=== PATIENT | female | born 1975 | race African-American/Black ===

== ENCOUNTER 2025-03-11 04:04 | Emergency (ER) | payer MEDICAID, SELFPAY ==
[2025-03-11 04:05] VITALS: BP 128/77; PULSE 91; RESP 18; TEMP 36.4; O2SAT 100; BMI 25.6
--- NOTE | 2025-03-11 04:19 | EDS_ITS ---
HPI History of Present Illness Chief Complaint: Other, Pain/Inj Narrative Narrative: Chief complaint and HPI: Right nipple mole pain. 50-year-old female with no significant past medical history presents for evaluation of right nipple mole pain. Patient states that she has had a mole on her right nipple since she was born. She states that years ago it became painful in which she got an antibiotic ointment and this resolved. Patient states over the last several days the mole has become painful which is why she presents for evaluation. She denies any fever, chills, nausea, vomiting. Denies any breast pain. Denies any nipple discharge or blood. Review of systems: See HPI Medications: As listed on the chart Allergies: As listed on the chart PFSH: Per chart Vital signs: As listed on the chart. Reviewed. Physical exam: Gen: A&O x3, NAD Head: Normocephalic, atraumatic Eyes: No sclera icterus, conjunctiva clear ENT: Moist mucous membranes Neck: Supple, full range of motion CV: Regular rate Resp: Nonlabored respiration Breast: Patient has a flesh-colored lesion on her right nipple it is attached by a thin stalk-the stalk is tender to palpation where there is excoriation from rubbing likely on her brawl, no erythema/warmth/purulence, nipple is not inverted, no peau d'orange, no nipple discharge, breast nontender without mass Neuro: Alert, oriented, grossly intact, sensation intact Psych: Cooperative, appropriate mood and affect [facility] Medical History (Updated 03/11/25 @ 04:10 by Jo Ann Soler) Asthma Home Medications ?Medication ?Instructions ?Recorded ?Last Taken ?Type albuterol sulfate inhalation PRN sob 03/11/25 Unknown History Allergy/AdvReac Type Severity Reaction Status Date / Time No Known Allergies Allergy Verified 03/11/25 04:09 Social History Smoking Status: Current every day smoker tobacco type: cigarettes EXAM Physical Exam Const Vital Signs: 03/11/25 04:05 03/11/25 04:11 Temperature 97.5 F L Temperature Source Oral Pulse Rate 91 Respiratory Rate 18 Respiratory Effort Normal Respiratory Pattern Normal Blood Pressure 128/77 H Blood Pressure Mean 94 Pulse Ox 100 Oxygen Delivery Method Room Air MDM MDM MDM Narrative Medical decision making narrative: 50-year-old female with no significant past medical history presents for evaluation of right nipple mole pain. Patient has a flesh-colored lesion on her right nipple it is attached by a thin stalk-the stalk is tender to palpation where there is excoriation from rubbing likely on her brawl. No abscess. No cellulitis. Patient was educated that she should follow-up with a tennis instructor to have this removed and evaluated. Mupirocin cream ordered here to help with healing. I do not think any further treatment is needed. Patient will be given the mupirocin cream to discharge home with. She was given instructions on how to use it. She confirmed understanding the plan. Impression: 1. Right nipple mole pain due to excoriation Discharge Plan Triage Chief Complaint: Other, Pain/Inj ED Provider: Castillo White Dx/Rx/DC Orders Prescriptions: No Action albuterol sulfate inhalation PRN (Reason: sob) Print Language: Persian
[2025-03-11] MEDS: Mupirocin Ointment 22gm Tube 1 APPLIC TOPICAL (04:36)
[2025-03-11 04:38] VITALS: BP 116/78; PULSE 78; RESP 18; TEMP 36.7; O2SAT 99
== END 2025-03-11 04:39 | disposition home or self-care (01) ==
LOC: ED 04:31
PROVIDERS: Emergency Provider Surgery; Visit Provider Surgery
DX: N64.4 Mastodynia (principal); S20.111A Abrasion of breast, right breast, initial encounter; X58.XXXA Exposure to other specified factors, initial encounter; J45.909 Unspecified asthma, uncomplicated; F17.210 Nicotine dependence, cigarettes, uncomplicated
CPT/HCPCS: 99283

== ENCOUNTER 2025-04-12 20:46 | Emergency (ER) | payer MEDICAID, SELFPAY ==
[2025-04-12 20:46] VITALS: BP 115/73; PULSE 82; RESP 16; TEMP 36.6; O2SAT 100; BMI 25.2
[2025-04-12 22:11] VITALS: BP 114/63; PULSE 72; RESP 16; O2SAT 100
--- NOTE | 2025-04-12 23:08 | EDS_ITS ---
HPI History of Present Illness Chief Complaint: Rash Informant: patient Narrative Narrative: Patient is a 50-year-old female denies any past medical history presenting with itchy rash on her arms. States it developed yesterday. She notes she just got back from [place] and took the bus. After on the bus she did take a cab to get home. She denies any other new exposures or soaps/detergents. She notes she did just moved to the [facility]. She did not take any of her symptoms prior to arrival. She states the rash is worse on her right arm but is now also developing on her left arm. She denies any associated swelling of her mouth, vision changes, eye swelling, throat swelling or difficulty breathing. Denies any GI or symptoms. No other complaints or concerns at this time. States has never had a thing like this before. [facility] Medical History Asthma Home Medications ?Medication ?Instructions ?Recorded ?Last Taken ?Type albuterol sulfate inhalation PRN sob 03/11/25 Unknown History cetirizine 10 mg tablet (Zyrtec) 10 mg PO DAILY #14 ta bs 04/12/25 Unknown Rx diphenhydramine HCl 25 mg capsule 25 mg PO TID PRN itc mandi #20 caps 04/12/25 Unknown Rx (Benadryl) prednisone 20 mg tablet 40 mg (2 x 20 mg) PO DAILY # 8 tabs 04/12/25 Unknown Rx Allergy/AdvReac Type Severity Reaction Status Date / Time No Known Allergies Allergy Verified 04/12/25 20:47 Social History Smoking Status: Current every day smoker tobacco type: cigarettes ROS ROS ED Constitutional Constitutional ED: Denies chills or fever(s) Eyes Eyes: Denies change in vision ENT ENT ED: Reports other Details: No lip swelling ; Denies sore throat Cardiovascular Cardiovascular: Denies chest pain Respiratory/Chest Respiratory/Chest: Reports other Details: No wheezing ; Denies cough or dyspnea Gastrointestinal Gastrointestinal: Denies abdominal pain, nausea or vomiting Musculoskeletal Musculoskeletal: Denies arthralgias or myalgias Integumentary Reports rash Neurologic Neurologic: Denies weakness Allergic/Immunologic Allergic/Immunologic ED: Reports urticaria; Denies mouth swelling or tongue swelling EXAM Physical Exam Const Vital Signs: 04/12/25 20:46 04/12/25 22:11 Temperature 98 F Temperature Source Oral Pulse Rate 82 72 Respiratory Rate 16 16 Blood Pressure 115/73 114/63 Blood Pressure Mean 87 80 Pulse Ox 100 100 Oxygen Delivery Method Room Air Positive well nourished and well developed General Appearance ED: well developed and NAD HEENT Reports TM's clear and moist mucous membranes HEENT Narrative: Normal oropharynx. No swelling of the mouth or lips. No lesions noted in the mouth on the buccal surfaces. Normal phonation. Tympanic Membrane ED: Yes TM's clear Eyes PERRL Eyes Narrative: No periorbital edema present Neck supple Neck Narrative: No stridor present Chest Wall inspection of chest normal and palpation of chest normal Resp normal respiratory effort and clear to auscultation bilaterally Auscultation: Negative for wheezes Cardio regular rate and regular rhythm GI normal to inspection, nondistended, normoactive bowel sounds and non-tender Extremity normal to inspection Extremity Narrative: No joint effusions or decreased range of motion present General Extremety ED: Negative for edema or tenderness General Extremity: Negative for edema Neuro oriented x3 Sensorium / Orientation: alert Psych mental status grossly normal Skin Skin Narrative: Scattered raised erythematous pruritic rash on the extremities consistent with urticaria. Negative Nikolsky sign MDM MDM MDM Narrative Medical decision making narrative: Patient evaluated for development of pruritic rash on her arms. Presentation was consistent with urticaria. She is overall well-appearing normal vital signs. No signs of anaphylaxis, or severe allergic reaction. Discussed the cause of this is vast including contact exposure, medication, seasonal allergy or even of virus. Will be started on Benadryl in the emergency room as well as prednisone. Is given a prescription for Zyrtec and prednisone as well as Benadryl for breakthrough symptoms. Is given referral for primary care doctor she does not have a PCP. Given return precautions. Discharged home in stable condition. Discharge Plan Triage Chief Complaint: Rash ED Provider: Nicole Mac Dx/Rx/DC Orders Clinical Impression: Urticaria Instructions: ED Hives (Adult) Prescriptions: New prednisone 20 mg tablet 40 mg PO DAILY Qty: 8 0RF cetirizine [Zyrtec] 10 mg tablet 10 mg PO DAILY Qty: 14 0RF diphenhydramine HCl [Benadryl] 25 mg capsule 25 mg PO TID PRN (Reason: itching) Qty: 20 0RF No Action albuterol sulfate inhalation PRN (Reason: sob) Primary Care Provider: Care Physician,No Primary Referrals: Ever Donovan MD [Med Staff - Home Sales Service Professional] - Care Physician,No Primary [Primary Care Provider] - Activity Restrictions/Additional Instructions: Your rash is most consistent with hives. The exact cause is not clear. Take medications as prescribed. These might get worse and or come and go over the next week or 2. If you develop difficulty breathing, swelling of your face/lips or further concerns please do not hesitate to return to the emergency room. Print Language: Yakut Disposition Disposition: Home, Self Care
[2025-04-12] MEDS: DiphenhydrAMINE 25 MG Capsule PO (23:13)
[2025-04-12] MEDS: predniSONE 20 MG Tablet 40 MG PO (23:13)
[2025-04-12 23:18] VITALS: BP 114/63; PULSE 72; RESP 16; TEMP 36.6; O2SAT 100
== END 2025-04-12 23:35 | disposition home or self-care (01) ==
PROVIDERS: Emergency Provider Emergency Medicine; Visit Provider Emergency Medicine
DX: L50.9 Urticaria, unspecified (principal); J45.909 Unspecified asthma, uncomplicated; F17.210 Nicotine dependence, cigarettes, uncomplicated
CPT/HCPCS: 99283